=== PATIENT | female | born 1960 | race Caucasian/White ===

== ENCOUNTER 2021-04-24 09:47 | Emergency (ER) | payer BC ==
[2021-04-24] MEDS ORDERED: Sodium Chloride 0.9% 10 ML Syringe FLUSH PRN (10:06)
[2021-04-24] MEDS ORDERED: Ondansetron 4 MG/2 ML SDV IVPUSH ONE (10:07)
[2021-04-24] MEDS ORDERED: HYDROmorphone 0.5 MG/0.5 ML Syringe IVPUSH ONE (10:07)
--- NOTE | 2021-04-24 10:07 | EDM.PDOC ---
ED HPI GENERAL MEDICAL PROBLEM - General Chief Complaint: Upper Extremity Injury/Pain Stated Complaint: RT ARM INJURY Time Seen by Provider: 04/24/21 10:02 Source of Information: Reports: Patient, Family History Limitations: Reports: No Limitations - History of Present Illness INITIAL COMMENTS - FREE TEXT/NARRATIVE: 60-year-old female presents to the ED in the accompaniment of her . History suggest that she got tripped up her by her dog while she was on the porch knocking her off balance. She then fell directly into the front door injuring her left arm. She denies hitting her head or hurting her neck. No chest wall pain no hip pain. Pain is limited to her right arm primarily in mid and upper humerus. She came to the ED in a right arm sling that her had used prior. She is unable to pronate or supinate her arm at the elbow. Injury occurred about hour and 10 minutes before coming to the ED. of note patient is right-hand dominant. Onset: Today, Sudden Onset Date: 04/24/21 Onset Time: 08:50 Duration: Minutes: Location: Reports: Upper Extremity, Right Quality: Reports: Ache, Throbbing Severity: Moderate Improves with: Reports: Rest Worsens with: Reports: Other (Any attempt at movement causes severe pain.) Context: Denies: Activity, Exercise, Lifting, Sick Contact, Trauma, Other Associated Symptoms: Denies: No Other Symptoms, Confusion, Chest Pain, Cough, cough w sputum, Diaphoresis, Fever/Chills, Headaches, Loss of Appetite, Malaise, Rash, Seizure, Shortness of Breath, Syncope, Weakness Treatments FRINGE WEAVER: Reports: Other (see below) (She has not taken any medication for pain relief.) Right Upper Arm Pain Score (Numeric/FACES): 7 - Related Data Allergies Allergy/AdvReac Type Severity Reaction Status Date / Time Penicillins Allergy Severe Rash Verified 04/24/21 09:58 Home Meds: Home Meds Non-Formulary Medication [NF Drug] 1 applic TOP DAILY 04/24/21 [History] oxyCODONE HCl/Acetaminophen [Percocet 5-325 mg Tablet] 1 - 2 each PO Q4H PRN #20 tablet 04/24/21 [Rx] Past Medical History [employer] History: Reports: Neurological History: Reports: Other (See Below) Other Neuro History: Cdxkqsb-Fzlfb-Eygnj Disease - Past Surgical History Female Surgical History: Reports: Section Social & Family History - Tobacco Use Tobacco Use Status *Q: Never Tobacco User - Caffeine Use Caffeine Use: Reports: None - Recreational Drug Use Recreational Drug Use: No - Living Situation & Occupation Living situation: Reports: Occupation: Retired Review of Systems - Review of Systems Review Of Systems: See Below Constitutional: Reports: No Symptoms Eyes: Reports: Glasses Ears: Reports: No Symptoms Nose: Reports: No Symptoms Mouth/Throat: Reports: No Symptoms Respiratory: Reports: No Symptoms Cardiovascular: Reports: No Symptoms GI/Abdominal: Reports: No Symptoms Genitourinary: Reports: No Symptoms Musculoskeletal: Reports: Other (Pain both feet. Has Charcot Heather tooth disease.) Skin: Reports: No Symptoms Neurological: Reports: No Symptoms Psychiatric: Reports: No Symptoms ED EXAM, GENERAL - Physical Exam Exam: See Below Exam Limited By: No Limitations General Appearance: Alert, WD/WN, Mild Distress, Other (In obvious pain and discomfort. Temperature is 35.8. Heart rate 97 and sinus respiratory 16 with O2 sats of 95% room air BP 116/50.) Eye Exam: Bilateral Eye: Normal Inspection, PERRL Throat/Mouth: Normal Inspection, Normal Lips, Normal Teeth, Normal Oropharynx, Other (No injury to her tongue or) Head: Atraumatic, Normocephalic. No: Facial Swelling ( teeth.), Facial Tenderness Neck: Normal Inspection, Supple, Full Range of Motion. No: Lymphadenopathy (L), Lymphadenopathy (R) Respiratory/Chest: No Respiratory Distress, Lungs Clear, Normal Breath Sounds, No Accessory Muscle Use, Other (No pain on firm compression of her ribs. She is able to take a deep breath without pain in her chest wall) Cardiovascular: Normal Peripheral Pulses, Regular Rate, Rhythm, No Edema, No Murmur, No Rub Peripheral Pulses: 3+: Carotid (L), Carotid (R), Posterior Tibial (L), Posterior Tibial (R), Dorsalis Pedis (L), Dorsalis Pedis (R) GI/Abdominal: Normal Bowel Sounds, Soft, Non-Tender, No Organomegaly, No Mass, Pelvis Stable Back Exam: Normal Inspection, Full Range of Motion. No: CVA Tenderness (L), CVA Tenderness (R) Extremities: Normal Inspection, Non-Tender, No Pedal Edema, Other (Patient has pain mid and upper portion of her shoulder. Pain in the humerus on compression of the humeral head. There is no obvious deformity or significant swelling of the humerus. No pain at the elbow or forearm and good radial and ulnar pulses to her). No: Normal Range of Motion Neurological: Alert ( right hand.), Oriented, CN II-XII Intact, Normal Cognition, Normal Gait Psychiatric: Other Skin Exam: Warm, Dry, Intact, Normal Color, No Rash Course - Vital Signs Last Recorded V/S: Last Vital Signs Temp 35.8 C L 04/24/21 09:56 Pulse 97 04/24/21 09:56 Resp 16 04/24/21 09:56 BP 116/50 L 04/24/21 09:56 Pulse Ox 95 04/24/21 09:56 - Orders/Labs/Meds Orders: Active Orders 24 hr Category Date Time Status Durable Medical Equipment for Discharge [DME for Oth 04/24/21 10:56 Ordered Discharge] [COMM] Stat Peripheral IV Insertion Adult [OM.PC] Stat Oth 04/24/21 10:07 Ordered Meds: Medications Discontinued Medications Generic Name Dose Route Start Last Admin Trade Name Freq PRN Reason Stop Dose Admin Hydromorphone HCl 0.5 mg 04/24/21 10:07 04/24/21 10:38 Hydromorphone 0.5 Mg/0.5 Ml Syringe IVPUSH 04/24/21 10:08 0.5 mg ONETIME ONE Administration Ondansetron HCl 4 mg 04/24/21 10:07 04/24/21 10:35 Ondansetron 4 Mg/2 Ml Sdv IVPUSH 04/24/21 10:08 4 mg ONETIME ONE Administration Sodium Chloride 10 ml 04/24/21 10:06 04/24/21 10:46 Sodium Chloride 0.9% 10 Ml Syringe FLUSH 10 ml ASDIRECTED PRN Administration Keep Vein Open - Radiology Interpretation Free Text/Narrative:: 60-year-old female presents to the ED after getting tripped up and falling into the door of her home this morning. The dog tripped her up and pushed her off balance. She fell with direct blow on her right upper arm involving the humerus. Plan 2 view of the humerus x-ray to be obtained. Saline lock to be started in the left hand. She will be given Dilaudid 0.5 mg IV with Zofran 4 mg IV for pain relief. - Re-Assessments/Exams Free Text/Narrative Re-Assessment/Exam: 04/24/21 10:50: X-rays of the right humerus reveal a comminuted fracture within the surgical neck of the proximal right humerus with slight angulation and shortening of the humeral shaft. Unable to tell of there is significant rotation of the humeral head. I did speak with a nurse who in turn spoke with --orthopedic surgeon. He has suggested patient be immobilized in sling and swath and see her in the clinic next week. She will apply ice to the area 1/2-hour out of every 4 hours today and tomorrow. Percocet tabs 5 /325 mg strength 1-2 every 4-6 hours as necessary for pain relief. Departure - Departure Time of Disposition: 11:30 Disposition: Home, Self-Care 01 Condition: Fair Clinical Impression: Fall at home Qualifiers: Encounter type: initial encounter Qualified Code(s): W19.XXXA - Unspecified fall, initial encounter Fracture of proximal humerus Qualifiers: Encounter type: initial encounter Fracture type: closed Fracture morphology: other fracture Fracture alignment: displaced Laterality: right Qualified Code(s): S42.291A - Other displaced fracture of upper end of right humerus, initial encounter for closed fracture - Discharge Information *PRESCRIPTION DRUG MONITORING PROGRAM REVIEWED*: Not Applicable *COPY OF PRESCRIPTION DRUG MONITORING REPORT IN PATIENT ANGLE: Not Applicable Prescriptions: oxyCODONE HCl/Acetaminophen [Percocet 5-325 mg Tablet] 1 - 2 each PO Q4H PRN #20 tablet PRN Reason: pain relief. Instructions: Humerus Fracture Treated With Immobilization, [id number], Pain Medicine Instructions, [id number] Referrals: PCP,Not In Area [Primary Care Provider] - Forms: ED Department Discharge Additional Instructions: Evaluation in the emergency room today in regards to injuries to the right upper arm that occurred from a fall at home this morning. X-rays reveal a fracture within the surgical neck of the proximal humerus with slight angulation. Treatment at this time is to immobilize the right upper extremity in a sling and swath and told to do otherwise by orthopedic surgeon. Please call Dr. Bowers`s office at [phone] to arrange follow-up appointment next week. Sling and swath to be worn at all times for the next 3 weeks until instructed otherwise by Dr. Bowers. Pain management is Percocet tabs 5/325 mg strength ideally 1 tablet every 4-6 hours as necessary for pain relief with Motrin 600 mg every 6 hours if needed. Pain medication does cause slowing of the bowels and constipation. Suggest starting MiraLAX powder 17 g or 1 scoop daily while on the narcotic pain medication. You may find you have to sleep sitting up for the next 2 to 3 weeks. Apply ice to the shoulder for 1/2-hour out of every 4 hours today and tomorrow. After that may apply heat to the area. Sepsis Event Note (ED) - Evaluation Sepsis Screening Result: No Definite Risk - Focused Exam Vital Signs: Vital Signs Temp Pulse Resp BP Pulse Ox 04/24/21 09:56 35.8 C L 97 16 116/50 L 95 - My Orders Last 24 Hours: My Active Orders 04/24/21 10:07 Peripheral IV Insertion Adult [OM.PC] Stat 04/24/21 10:56 Durable Medical Equipment for Discharge [DME for Discharge] [COMM] Stat - Assessment/Plan Last 24 Hours: My Active Orders 04/24/21 10:07 Peripheral IV Insertion Adult [OM.PC] Stat 04/24/21 10:56 Durable Medical Equipment for Discharge [DME for Discharge] [COMM] Stat
--- NOTE | 2021-04-24 10:55 | CR ---
Right humerus: 2 views of the right humerus were obtained. Comparison: No prior right humerus exam is available. Fracture is identified within the surgical neck of the proximal humerus with slight angulation. No additional humeral abnormality is appreciated. Impression: 1. Slightly angulated surgical neck fracture within the proximal right humerus. Diagnostic code #3
== END 2021-04-24 11:30 | disposition home or self-care (01) ==
LOC: JD.ED 09:47
DX: S42.211A Unspecified displaced fracture of surgical neck of right humerus, initial encounter for closed fracture (principal); Z88.0 Allergy status to penicillin; W01.0XXA Fall on same level from slipping, tripping and stumbling without subsequent striking against object, initial encounter
CPT/HCPCS: 73060; 96374; 96375; 99283; J1170; J2405